=== PATIENT | female | born 1945 | race Caucasian/White ===

== ENCOUNTER → 2023-07-17 15:54 | Outpatient (REF) | payer MEDICARE, OTHER, SELFPAY | LOC: HWWDC 15:54 | PROVIDERS: ATTENDING PHYSICIAN Family Medicine | DX: Z12.31 Encounter for screening mammogram for malignant neoplasm of breast (principal) | CPT/HCPCS: 77063; 77067 ==

== ENCOUNTER → 2023-11-03 06:21 | Day surgery (SDC) | payer MEDICARE, OTHER, SELFPAY ==
[2023-11-03 08:07] LABS: Glucose - Point of Care 152 mg/dl (70-99)
== END ==
LOC: GI 06:21
PROVIDERS: ATTENDING PHYSICIAN Internal Medicine
DX: R10.13 Epigastric pain (principal); K21.9 Gastro-esophageal reflux disease without esophagitis; K22.4 Dyskinesia of esophagus; K44.9 Diaphragmatic hernia without obstruction or gangrene; Z98.0 Intestinal bypass and anastomosis status; Z98.84 Bariatric surgery status; K31.89 Other diseases of stomach and duodenum
CPT/HCPCS: 43239; 88305; 82962; 88342

== ENCOUNTER 2024-05-09 13:05 | Emergency (ER) | payer MEDICARE, OTHER, SELFPAY ==
[2024-05-09 13:26] VITALS: BP 178/90
--- NOTE | 2024-05-09 13:28 | ED.GENMED ---
ED Provider Triage
<Xavier Cornejo PA-C - Last Filed: 05/09/24 13:31>
-
Patient seen by provider in Triage?: Seen in Triage
Attestation: A medical screening examination has been initiated by a qualified medical provider. Based on the assessment performed at this time, it has been determined that an emergent medical condition may exist and the patient has been informed
that further medical evaluation and possible additional diagnostic testing may be needed.
HPI: 78-year-old female presents for evaluation after a fall with resultant left hip pain. States she had pain when standing but not when seated, was driving to [place] and stopped to use the restroom when she noted significant bleeding from the
left hip thus drove back to [place] to be evaluated. She did strike her head and has a small bruise but denies any headache, vision changes. Takes 81 mg aspirin but no anticoagulants, denies neck pain
GENERAL: Alert , in no apparent distress
EYE: No visual abnormalities.
NECK: Trachea midline
ENT: No visible abnormalities.
LUNGS: No acute respiratory distress
NEUROLOGICAL: Alert and oriented
SKIN: Skin intact. No visible changes.
MUSCULOSKELETAL: Moving extremities normally
PSYCH: Normal and appropriate interaction.
This is a medical evaluation conducted in person to initiate diagnostic evaluation and provide initial therapeutics. Please see further documentation by the treating clinician.
History of Present Illness
<Xavier Cornejo PA-C - Last Filed: 05/09/24 13:31>
General
Chief Complaint: Fall
Time Seen by Provider: 05/09/24 15:20
<Abhijit Agustin MD, Resident - Last Filed: 05/09/24 20:26>
General
Source: patient
Nursing documentation reviewed up to this point in time: agreed with
Travel History
Have you traveled to any high risk areas for coronavirus over the past 14 days?: No
Have you had any contact with someone who has COVID-19?: No
Do you have any symptoms of coronavirus? Fever > 100 degrees, chills, cough, shortness of breath, sore throat, loss of taste or smell, muscle aches, or headache?: No
History of Present Illness
History of Present Illness:
78-year-old female with past medical history of cholecystectomy, gastric bypass surgery (2006), NIDDM, essential hypertension who presented to the emergency department today with left hip bleeding after a fall. Patient reports falling down a
staircase prior to leaving her home to travel to [place]. Drove for 3 hours and discovered that she was sitting in the pool of blood. Patient reports striking her head but denies any loss of consciousness. She denies headache, vision changes,
dizziness, chest pain, abdominal pain, fever, chills. She is not on any anticoagulants apart from aspirin 81 mg 3 times weekly. Patient reports left hip pain 9/10 only when she moves. Pain does not radiate. She also reports left mid back pain
with movement of her torso.
Past History
<Xavier Cornejo PA-C - Last Filed: 05/09/24 13:31>
Past History
ED Past Medical History: HTN, NIDDM and Other (OA)
ED Past Surgical History: None, Orthopedic (R TKA) and Other (Gastric bypass '07)
Social History
Tobacco: Non-smoker
Alcohol: None
Drug: None
Living: with family
Review of Systems
<Abhijit Agustin MD, Resident - Last Filed: 05/09/24 20:26>
Review of Systems
Allergies reviewed?: Yes
All Other Systems: ROS reviewed and negative except as documented in HPI and ROS
Phy Exam
<Abhijit Agustin MD, Resident - Last Filed: 05/09/24 20:26>
General Physical Exam
General Presentation: well appearing and no apparent distress
General age: appears stated age
General Skin: warm and dry
General Habitus: normal
General Mental: alert
Cardiovascular Exam
Cardiovascular Exam: regular rate/rhythm, no murmur and normal peripheral pulses
Pulmonary Exam
Pulmonary Exam: lungs clear, no respiratory distress, no rales, no crackles and no wheezing
Gastrointestinal Exam
Gastrointestinal Exam: normal bowel sounds, non tender, soft and non distended
Neurological Exam
Neurological Exam: alert and oriented x3
Musculoskeletal Exam
Musculoskeletal Exam: full ROM, edema (Bilateral lower extremities) and joint swelling (Left hip)
Skin Exam
Skin Exam: normal color, warm/dry and redness (Left hip/buttocks)
Course
<Xavier Cornejo PA-C - Last Filed: 05/09/24 13:31>
Orders/Labs/Results
Orders:
Orders
05/09/24 13:29
CR Hip - LT w/wo Pel 2-3 Vw* Urgent
Comment:
Reason For Exam: fall
Include a pelvis x-ray?: Yes
05/09/24 15:58
CT Head W/o Iv Contrast Urgent
Comment:
Reason For Exam: Head trauma
05/09/24 16:16
Acetaminophen [Tylenol] 1,000 mg PO NOW STA
05/09/24 16:17
Basic Metabolic Panel Urgent
Complete Blood Count/With Diff Urgent
Abnormal Lab Results
05/09/24
16:17
RBC 3.15 L 10^6/uL
(4.20-5.40)
Hgb 10.5 L g/dL
(12.0-16.0)
Hct 31.6 L %
(37.0-47.0)
MCV 100.3 H fL
(81.0-99.0)
MCH 33.3 H pg
(27.0-31.0)
MPV 10.9 H fL
(7.4-10.4)
Absolute Monos (auto) 0.8 H 10^3/uL
(0.1-0.6)
Monocytes % 10.2 H %
(1.7-9.3)
BUN 20 H mg/dl
(7-17)
Creatinine 1.1 H mg/dL
(0.6-1.0)
Glucose 154 H mg/dl
(70-99)
05/09/24 16:17
05/09/24 16:17
Vital Signs
Initial and Last Documented VS:
Initial Vital Signs
Temp Pulse Resp BP Pulse Ox
98.7 F 77 22 178/90 98
05/09/24 13:26 05/09/24 13:26 05/09/24 13:26 05/09/24 13:26 05/09/24 13:26
Last Documented Vital Signs
Temp Pulse Resp BP Pulse Ox
98.7 F 71 18 141/67 96
05/09/24 13:26 05/09/24 15:05 05/09/24 15:05 05/09/24 15:05 05/09/24 15:05
<Abhijit Jeremias Agustin MD, Resident - Last Filed: 05/09/24 20:26>
Orders/Labs/Results
Orders:
Orders
05/09/24 13:29
CR Hip - LT w/wo Pel 2-3 Vw* Urgent
Comment:
Reason For Exam: fall
Include a pelvis x-ray?: Yes
05/09/24 15:58
CT Head W/o Iv Contrast Urgent
Comment:
Reason For Exam: Head trauma
05/09/24 16:16
Acetaminophen [Tylenol] 1,000 mg PO NOW STA
05/09/24 16:17
Basic Metabolic Panel Urgent
Complete Blood Count/With Diff Urgent
Abnormal Lab Results
05/09/24
16:17
RBC 3.15 L 10^6/uL
(4.20-5.40)
Hgb 10.5 L g/dL
(12.0-16.0)
Hct 31.6 L %
(37.0-47.0)
MCV 100.3 H fL
(81.0-99.0)
MCH 33.3 H pg
(27.0-31.0)
MPV 10.9 H fL
(7.4-10.4)
Absolute Monos (auto) 0.8 H 10^3/uL
(0.1-0.6)
Monocytes % 10.2 H %
(1.7-9.3)
BUN 20 H mg/dl
(7-17)
Creatinine 1.1 H mg/dL
(0.6-1.0)
Glucose 154 H mg/dl
(70-99)
05/09/24 16:17
05/09/24 16:17
Vital Signs
Initial and Last Documented VS:
Initial Vital Signs
Temp Pulse Resp BP Pulse Ox
98.7 F 77 22 178/90 98
05/09/24 13:26 05/09/24 13:26 05/09/24 13:26 05/09/24 13:26 05/09/24 13:26
Last Documented Vital Signs
Temp Pulse Resp BP Pulse Ox
98.7 F 71 18 141/67 96
05/09/24 13:26 05/09/24 15:05 05/09/24 15:05 05/09/24 15:05 05/09/24 15:05
Yult;Coy Moscoso DO - Last Filed: 05/09/24 18:36>
Orders/Labs/Results
Orders:
Orders
05/09/24 13:29
CR Hip - LT w/wo Pel 2-3 Vw* Urgent
Comment:
Reason For Exam: fall
Include a pelvis x-ray?: Yes
05/09/24 15:58
CT Head W/o Iv Contrast Urgent
Comment:
Reason For Exam: Head trauma
05/09/24 16:16
Acetaminophen [Tylenol] 1,000 mg PO NOW STA
05/09/24 16:17
Basic Metabolic Panel Urgent
Complete Blood Count/With Diff Urgent
Abnormal Lab Results
05/09/24
16:17
RBC 3.15 L 10^6/uL
(4.20-5.40)
Hgb 10.5 L g/dL
(12.0-16.0)
Hct 31.6 L %
(37.0-47.0)
MCV 100.3 H fL
(81.0-99.0)
MCH 33.3 H pg
(27.0-31.0)
MPV 10.9 H fL
(7.4-10.4)
Absolute Monos (auto) 0.8 H 10^3/uL
(0.1-0.6)
Monocytes % 10.2 H %
(1.7-9.3)
BUN 20 H mg/dl
(7-17)
Creatinine 1.1 H mg/dL
(0.6-1.0)
Glucose 154 H mg/dl
(70-99)
05/09/24 16:17
05/09/24 16:17
Vital Signs
Initial and Last Documented VS:
Initial Vital Signs
Temp Pulse Resp BP Pulse Ox
98.7 F 77 22 178/90 98
05/09/24 13:26 05/09/24 13:26 05/09/24 13:26 05/09/24 13:26 05/09/24 13:26
Last Documented Vital Signs
Temp Pulse Resp BP Pulse Ox
98.7 F 71 18 141/67 96
05/09/24 13:26 05/09/24 15:05 05/09/24 15:05 05/09/24 15:05 05/09/24 15:05
<Abhijit Agustin MD, Resident - Last Filed: 05/09/24 20:26>
MDM/Problems Addressed
MDM/Problems Addressed:
78-year-old female with past medical history of cholecystectomy, gastric bypass surgery (2006), NIDDM, essential hypertension who presented to the emergency department today with left hip bleeding after falling off staircase and bleeding for 3
hours. Patient is not in any acute distress, lying down comfortably in bed. Hip x-ray obtained in the emergency department reports moderate bilateral hip osteoarthritis without any osseous injury. Will check CBC and CMP and have patient walk to
determine need for CT abdomen/pelvis to rule out occult fractures. At the meantime, we will treat with 1000 mg Tylenol and obtain a noncontrast CT head.
Patient obtained Td vaccine on 09/03/2018, no indication to repeat vaccination.
Chronic conditions affecting care: Previous abdomnial surgery
<Abhijit Agustin MD, Resident - Last Filed: 05/09/24 20:26>
*Radiology
Radiology exam reviewed: radiology read reviewed
*Critical Care Note
Total Time (30-74mins, 75-104mins- exclusive of procedures): Not Applicable
Data Reviewed
Review of Other/Old Records Reveals: Labs (Creatinine 1.0)
<Abhijit Agustin MD, Resident - Last Filed: 05/09/24 20:26>
Update Note
Update Note:
CBC remarkable for acute anemia with hemoglobin 10.5, was 12.1 11 days ago. This most likely from acute bleeding however not low enough to warrant transfusion.
19: [address] scan of head with no acute intracranial abnormalities noted. Left hip 1 cm laceration stage II with single 4.0 nylon stitch. Encourage patient to administer cold compress 10 to 15 minutes 3-5 times daily for the next
72 hours and continue with warm compress as needed. Advised to take Tylenol sooner 50 mg every 4 hours as needed and follow-up with primary care physician.
ED Attending Note
<Xavier Cornejo PA-C - Last Filed: 05/09/24 13:31>
-
Portions of this chart may have been created with voice recognition software.� Occasional wrong word or��sound alike� substitutions may have occurred due to the inherent limitations of voice recognition software.
<Coy Moscoso DO - Last Filed: 05/09/24 18:36>
ED Attending Note
Patient seen and examined by attending physician: Yes
I performed a history and physical exam of patient and discussed management with resident, I reviewed resident's note and agree with documented findings and plan of care.: Yes
ED Attending Note:
Patient presents with left leg pain after a fall. Patient states she was exiting her house into her garage without the lights on when she tripped and fell. She was able to get up with some discomfort. She began her drive to [place] and along the
way noted bleeding from the left hip. She did come back to get checked out. Patient did strike her head but no loss of consciousness.
General: Awake, Alert, Oriented X3. No acute distress.
Vitals: unremarkable
Head: Superficial abrasion left forehead
Eyes: Pupils equal, EOMI
Throat: Airway intact, no exudates
Neck: Trachea midline
Lungs: Clear and equal b/l
Heart: Regular rate, no murmurs
Abd: Soft, Nontender, No pulsatile mass
Neuro: Nonfocal
Skin: Warm, dry, no rash
Extremities: pulses equal b/l, ecchymosis left lateral leg. Range of motion intact at the hip without significant tenderness
Patient was able to ambulate here in the emergency room. X-ray shows no acute fracture. CT of the head is pending. Head wound not requiring suturing.
Discharge Plan
Departure
Patient Disposition: Home (Routine Discharge)
Date of Disposition: 05/09/24
Time of Disposition: 19:46
Patient with high blood pressure during this ER visit?: Yes
Condition: Good
Covid-19: Not Applicable
Discharge Problem:
Acute blood loss anemia, Essential (primary) hypertension
Instructions: Wound Care (DC), Head Injury in Adults (DC), Contusion (DC), Preventing falls in adults, BLOOD PRESSURE
Prescriptions:
No Action
multivitamin 1 EACH tablet
1 ea PO DAILY
valsartan [Diovan] 160 MG capsule
160 mg PO DAILY
metformin 500 MG tablet
500 mg PO BID@0800,1700
atorvastatin 20 MG tablet
20 mg PO QPM
metoprolol succinate 50 MG tablet extended release 24 hr
50 mg PO DAILY
aspirin 81 MG tablet,delayed release (DR/EC)
81 mg PO DAILY
pantoprazole [Protonix] 20 MG tablet,delayed release (DR/EC)
20 mg PO DAILY
levothyroxine 50 MCG tablet
50 mcg PO DAILY AT 0700
potassium gluconate 500 MG tablet
500 mg PO DAILY
Magnesium
1 dose PO DAILY
nifedipine 30 MG tablet extended release 24hr
30 mg PO DAILY
calcium carbonate 500 MG tablet
500 mg PO BID
ferrous sulfate [Iron (ferrous sulfate)] 325 MG tablet
325 mg PO MOFR
vitamin B complex 1 TAB tablet
1 tab PO MOWEFR
cholecalciferol (vitamin D3) 1,000 UNITS tablet
1,000 units PO MOWEFR
biotin 5,000 MCG tablet, sublingual
5,000 mcg PO DAILY
cholestyramine (with sugar) 1 PKT powder in packet
1 pkt PO DAILY Qty: 30 0RF
Referrals:
Arya Lacey MD [Family Provider] - Follow up in 2-3 days
Activity Restrictions/Additional Instructions:
You presented with left hip pain after an unwitnessed fall at home. Your lab work was remarkable for anemia suspected to be due to acute blood loss. Your hip x-ray did not show any fractures but some degenerative changes. You also reported
striking your head without any LOC. Your head CT scan did not show any acute intracranial bleeding. Your hip laceration was also treated with a single stitch. You have been treated with Tylenol and was able to walk to the bathroom and back to
your bed by yourself. You can take 650 mg Tylenol every 4 hours as needed for pain. Please take your medications as prescribed and follow up with your primary care provider and/or other healthcare provider involved in your care for suture removal
in10 days and any further adjustments to your medication regimen as necessary. You may return to the emergency department if you start having weakness, bleeding, fever, inability to walk, nausea, vomiting.
Interventions
Interventions:
*Risk Screen - Suicide Last Done: 05/09/24 13:26
*General Assessment Last Done: 05/09/24 13:26
*Neglect/Abuse Screening Last Done: 05/09/24 13:26
ED- Fall Risk Assessment Last Done: 05/09/24 15:00
*ED COVID-19 Vaccine History Last Done: 05/09/24 14:59
ED-Musculoskeletal Assessment Last Done: 05/09/24 15:00
ED- Neurological Assessment Last Done: 05/09/24 15:00
ED-Skin Assessment Last Done: 05/09/24 15:00
Discharge Date and Time
Print Language: DANISH
[2024-05-09 15:05] VITALS: BP 141/67
[2024-05-09 16:31] LABS: % Basophils 0.7 % (0-2); % Eosinophils 1.2 % (0-6); % Immature Granulocytes 0.4 % (0-0.5); % Lymphocytes 21.6 % (20.5-51.1); % Monocytes 10.2 % (1.7-9.3); % Neutrophils 65.9 % (42.2-75.2); Absolute Basophils 0.1 10^3/uL (0-0.2); Absolute Eosinophils 0.1 10^3/uL (0-0.7); Absolute Lymphocytes 1.7 10^3/uL (1.2-3.4); Absolute Monocytes 0.8 10^3/uL (0.1-0.6); Hematocrit 31.6 % (37.0-47.0); Hemoglobin 10.5 g/dL (12.0-16.0); Mean Corp Hgb Conc. 33.2 g/dL (33.0-37.0); Mean Corpuscular Hgb 33.3 pg (27.0-31.0); Mean Corpuscular Volume 100.3 fL (81.0-99.0); Mean Platelet Volume 10.9 fL (7.4-10.4); Nucleated Red Blood Cells % 0 %; Platelet Count 208 10^3/uL (130-400); Red Blood Cell Count 3.15 10^6/uL (4.20-5.40); Red Cell Dist. Width 12.9 % (11.5-14.5); White Blood Cell Count 7.6 10^3/uL (4.8-10.8)
[2024-05-09] MEDS: TYLENOL 1000 MG PO (16:37)
[2024-05-09 16:41] LABS: Blood Urea Nitrogen 20 mg/dl (7-17); Calcium 8.7 mg/dl (8.4-10.2); Carbon Dioxide 27 mmol/L (22-30); Chloride 102 mmol/L (98-107); Glucose 154 mg/dl (70-99); Sodium 136 mmol/L (135-145); eGFR 51.75
[2024-05-09 18:00] VITALS: BP 138/79
== END 2024-05-09 20:43 | disposition home or self-care (01) ==
LOC: EMR 13:05
PROVIDERS: Student in an Organized Health Care Education/Training Program; EMERGENCY PHYSICIAN Emergency Medicine; FAMILY PHYSICIAN Family Medicine
DX: D62 Acute posthemorrhagic anemia (principal); S71.012A Laceration without foreign body, left hip, initial encounter; S09.90XA Unspecified injury of head, initial encounter; W10.9XXA Fall (on) (from) unspecified stairs and steps, initial encounter; I10 Essential (primary) hypertension; E11.9 Type 2 diabetes mellitus without complications; Z90.49 Acquired absence of other specified parts of digestive tract; Z98.84 Bariatric surgery status; Z79.82 Long term (current) use of aspirin
CPT/HCPCS: 99284; 12001; 70450; 73502; 80048; 85025

== ENCOUNTER → 2024-07-30 13:26 | Outpatient (REF) | payer MEDICARE, OTHER, SELFPAY | LOC: HWWDC 13:26 | PROVIDERS: ATTENDING PHYSICIAN Family Medicine | DX: Z12.31 Encounter for screening mammogram for malignant neoplasm of breast (principal) | CPT/HCPCS: 77063; 77067 ==

== ENCOUNTER → 2024-11-03 11:14 | Outpatient (REF) | payer MEDICARE, OTHER, SELFPAY | LOC: RCS 11:14 | PROVIDERS: ATTENDING PHYSICIAN Internal Medicine Cardiovascular Disease; FAMILY PHYSICIAN Family Medicine | DX: I10 Essential (primary) hypertension (principal) | CPT/HCPCS: 93306 ==